=== PATIENT | female | born 1950 | race Caucasian/White ===

== ENCOUNTER → 2017-12-15 | Outpatient (CLI) | payer OTHER ==
--- NOTE | 2017-12-16 14:03 | MAMMOGRAPHY REPORT ---
BILATERAL DIGITAL SCREENING MAMMOGRAM TOMOSYNTHESIS WITH CAD: 12/15/2017 CLINICAL HISTORY: Routine screening. Patient has no complaints. TECHNIQUE: Breast tomosynthesis in addition to standard 2D mammography was performed. Current study was also evaluated with a Computer Aided Detection (CAD) system. COMPARISON: Comparison is made to exams dated: 05/20/2012 ultrasound, 05/20/2012 mammogram, 10/23/2011 mammogram, 10/22/2010 mammogram - [facility], 02/01/2015 mammogram, and 11/28/2013 ma mmogram - [facility]. BREAST COMPOSITION: The tissue of both breasts is heterogeneously dense, which may obscure small mas ses. FINDINGS: There is a newly visualized 5.5 mm nodular asymmetry in the lateral anterior right breast, best seen on CC tomosynthesis slice 9/56. Although this could represent a cyst, definitive character ization with targeted ultrasound and possible additional mammographic views are recommended. This is thought to be located in the lower outer right breast, given the inferior location on the tomosynthe sis localizer bar. The right 2-D CC projection is degraded by patient motion. Although the correspo nding tomosynthesis images do not demonstrate obvious motion, a repeat 2-D right CC view should also be performed at time of diagnostic workup to exclude any subtle microcalcifications. There are minimal vascular calcifications in the breasts. No other suspicious mass, architectural dis tortion or cluster of microcalcifications is seen. IMPRESSION: ACR BI-RADS CATEGORY 0: INCOMPLETE EVALUATION: NEED ADDITIONAL IMAGING EVALUATION 1. The newly visualized 5.5 mm nodular asymmetry in the lateral, anterior right breast needs addition al evaluation. 2. At time of diagnostic workup a repeat right CC 2-D view should be performed due to patient motion . The patient will be called to schedule an appointment. Approximately 10% of breast cancers are not detected with mammography. A negative mammographic report should not delay biopsy if a clinically suggestive mass is present. Luiza Ny M.D. ay/:12/15/2017 15:51:48 Rent Collector: Hannah PHILIP)(Carol), [facility] letter sent: Addl Imaging 0 BI-RADS Code: ACR BI-RADS Category 0: Incomplete Evaluation: Need Additional Imaging Evaluation
== END | disposition home or self-care (01) ==
LOC: C.MAMM 13:30
PROVIDERS: ATTEND Family Medicine
DX: Z12.31 Encounter for screening mammogram for malignant neoplasm of breast (principal); N64.89 Other specified disorders of breast

== ENCOUNTER → 2017-12-17 | Outpatient (CLI) | payer OTHER ==
--- NOTE | 2017-12-17 14:42 | MAMMOGRAPHY REPORT ---
UNILATERAL RIGHT DIGITAL DIAGNOSTIC MAMMOGRAM TOMOSYNTHESIS AND TARGETED RIGHT ULTRASOUND: 12/17/2017 CLINICAL HISTORY: 67-year-old woman called back from screening mammography for a 5.5 mm nodular asymm etry in the lateral anterior right breast, best seen on the CC view. Also repeat right CC 2-D view d ue to motion artifact. TECHNIQUE: Full field 2-D right CC, spot compression right CC and MLO tomosynthesis images were obtai wilfredo. COMPARISON: Comparison is made to exams dated: 12/15/2017 mammogram - [facility], mammogram, 11/28/2013 mammogram - [facility], 05/20/2012 ultrasound, 05/20/2012 ma mmogram, and 10/23/2011 mammogram - [facility]. BREAST COMPOSITION: The tissue of the right breast is heterogeneously dense, which may obscure small masses. FINDINGS: The Full Field right CC 2-D image demonstrates no suspicious cluster of microcalcification s. There are a few benign-appearing calcifications in the middle one third of the right breast. Nei ther the right CC 2-D view or the spot compression right CC tomosynthesis view demonstrate persistenc e of the 5.5 mm nodular asymmetry as seen on the screening mammogram performed 12/15/2017. This sugg ests it could have represented normal overlapping tissue. There is no suspicious abnormality seen on the spot compression MLO tomosynthesis images either. No focal area of distortion, spiculated or ir regular mass or asymmetry. Targeted ultrasound was performed in the right lateral breast, in the area of mammographic nodular as ymmetry. There is duct ectasia, most prominent in the 8:00 to 9:00 axis of the right breast, which m ay account for the nodular mammographic appearance. There is no evidence of a suspicious solid or cy stic masses throughout the lateral right breast. IMPRESSION: ACR BI-RADS CATEGORY 2: BENIGN, TARGETED ULTRASOUND ACR BI-RADS CATEGORY 2: BENIGN 1. Supplemental mammographic views demonstrate effacement of the 5 mm nodular asymmetry in the later al anterior breast, and no suspicious sonographic correlate identified. Only benign duct ectasia is identified on ultrasound. The asymmetry most likely represented normal overlapping tissue and would recommend return to annual screening mammography schedule. These results and recommendations were discussed with the patient at the time of the exam. Approximately 10% of breast cancers are not detected with mammography. A negative mammographic report should not delay biopsy if a clinically suggestive mass is present. Luiza Ny M.D. ay/:12/17/2017 14:14:44 Sorter Pricer: Belinda PHILIP)(Carol), [facility] letter sent: Normal 1/2 BI-RADS Code: ACR BI-RADS Category 2: Benign Ultrasound BI-RADS: ACR BI-RADS Category 2: Benign
== END | disposition home or self-care (01) ==
LOC: C.MAMM 13:13
PROVIDERS: ATTEND Family Medicine
DX: N64.89 Other specified disorders of breast (principal); N60.41 Mammary duct ectasia of right breast

== ENCOUNTER → 2018-02-17 | Outpatient (CLI) | payer OTHER | END | disposition home or self-care (01) | LOC: C.RDSM 17:21 | PROVIDERS: ATTEND Orthopaedic Surgery Sports Medicine | DX: M25.562 Pain in left knee (principal) ==

== ENCOUNTER → 2018-06-17 | Outpatient (CLI) | payer OTHER | END | disposition home or self-care (01) | LOC: C.RDSM 13:31 | PROVIDERS: ATTEND Orthopaedic Surgery | DX: M79.605 Pain in left leg (principal) ==